=== PATIENT | female | born 2005 | race Caucasian/White ===

== ENCOUNTER 2024-04-29 07:14 | Emergency (ER) | payer OTHER, SELFPAY ==
[2024-04-29 07:19] VITALS: BP 159/84; PULSE 85; TEMP 37.2; O2SAT 100; BMI 21.3
[2024-04-29] MEDS: AMOXICILLIN/POT CLAV 875-125 MG TABLET 1 TAB PO (07:54)
[2024-04-29] MEDS: IBUPROFEN 600 MG TABLET PO (07:54)
--- NOTE | 2024-04-29 08:03 | ED.DENTAL1 ---
HPI - Dental/Oral General Chief complaint: Dental/Oral Stated complaint: DENTAL PAIN, FACIAL SWELLING Time Seen by Provider: 04/29/24 07:36 Mode of arrival: walk-in History of Present Illness HPI Narrative: The patient is a 18 years old female coming to us with a right upper dental pain that developed over the last few days, although this morning she woke up with a swelling in the right upper facial area The patient mentioned that she had a dental filling in the right upper tooth #2 and she did notice almost few days ago she started having some pain in the area but she woke up this morning with a swelling No other complaint Related Data Previous Rx's ?Medication ?Instructions ?Recorded amoxicillin 875 mg-potassium 1 tab PO BID #14 tabs 04/29/24 clavulanate 125 mg tablet ibuprofen 600 mg tablet 600 mg PO TID PRN pain #20 tabs 04/29/24 Allergies Allergy/AdvReac Type Severity Reaction Status Date / Time No Known Drug Allergies Allergy Verified 04/29/24 07:19 Review of Systems ROS Status of ROS 10 or more systems reviewed and unremarkable except as noted in history and below PFSH PFSH Social History Little interest or pleasure in doing things: not at all Feeling down, depressed, or hopeless: not at all Exam Narrative Exam Narrative: Nurses notes and vital signs reviewed and patient is not hypoxic. Dental exam: The patient have a good dental hygiene and the tooth #2 have filling in it and mildly inflamed gum around it The patient have a swelling in the right side of the face mostly toward the right maxillary area no compromise of the airway General: Well-appearing and in no apparent distress. Skin: Warm, dry, no pallor noted. No rash. Head: Normocephalic, atraumatic. Neck: Supple, non-tender. Eye: Pupils are equal, round and EOMI. No scleral icterus. Ears, Nose, Mouth, and Throat: TM are clear, no nasal mucosal hypertrophy. Oral mucosa is moist, no posterior oropharynx erythema, uvula is mid-line Cardiovascular: Regular Rate and Rhythm without murmur, gallop or rub. Respiratory: No accessory muscle use or respiratory distress. Lungs are clear to auscultation, no wheezing, rales or rhonchi Chest Wall: no tenderness Back: No midline thoracic or lumbar vertebral tenderness. No CVA tenderness Musculoskeletal: normal ROM, no calf or popliteal tenderness, no lower extremity edema/swelling GI: Abdomen is soft, non-distended. Normal bowel sounds. No masses appreciated. No tenderness to palpation. No rebound, guarding, or rigidity noted. Neurological: A&O x4. No cranial nerve dysfunction observed. No truncal ataxia. Moves all extremities. Sensation intact. Psychiatric: Cooperative and interactive. Normal mood and affect. Constitutional Vital Signs, click to edit/add: Last Vital Signs Temp 98.9 F 04/29/24 07:19 Pulse 85 04/29/24 07:19 Resp 16 04/29/24 07:19 BP 159/84 H 04/29/24 07:19 Pulse Ox 100 04/29/24 07:19 Course Vital Signs Vital signs: Vital Signs Temperature 98.9 F 04/29/24 07:19 Pulse Rate 85 04/29/24 07:19 Respiratory Rate 16 04/29/24 07:19 Blood Pressure 159/84 H 04/29/24 07:19 Pulse Oximetry 100 04/29/24 07:19 Temperature 98.9 F 04/29/24 07:19 Pulse Rate 85 04/29/24 07:19 Respiratory Rate 16 04/29/24 07:19 Blood Pressure 159/84 H 04/29/24 07:19 Pulse Oximetry 100 04/29/24 07:19 MDM - Dental/Oral MDM Narrative Medical decision making narrative: The patient presented to us with a dental swelling mostly secondary to dental infection Right now the patient was started on Augmentin in addition to ibuprofen she was referred to go back to the dentist for further evaluation She is also to come back in case of any new symptoms of fever or increasing swelling The patient is to follow up with primary care physician in next 2-3 days or to return to the emergency department should any of the signs or symptoms worsen or new symptoms develop. The patient agrees with the following Diagnosis and Treatment plan and the patient will be discharged home. Discharge Plan Discharge Chief Complaint: Dental/Oral Clinical Impression: Dental abscess Patient Disposition: Home, Self-Care Time of Disposition Decision: 07:46 Condition: Good Mode of Transportation: Private Vehicle Prescriptions / Home Meds: New amoxicillin-pot clavulanate 875-125 mg tablet 1 tab PO BID Qty: 14 0RF ibuprofen 600 mg tablet 600 mg PO TID PRN (Reason: pain) Qty: 20 0RF Print Language: Austrian Instructions: Dental Abscess (ED) Referrals: MARY GALICIA [Primary Care Provider] - 1 week Discharge Date/Time: 04/29/24 08:02
== END 2024-04-29 08:02 | disposition home or self-care (01) ==
PROVIDERS: Emergency Provider Emergency Medicine; PCP Nurse Practitioner
DX: K04.7 Periapical abscess without sinus (principal)
CPT/HCPCS: 99283